=== PATIENT | female | born 1995 | race Caucasian/White ===

== ENCOUNTER → 2016-12-17 23:53 | Observation (INO) ==
--- NOTE | 2016-12-17 23:30 | OB/GYN Progress Note ---
Date of Encounter: 12/17/16 Time of Encounter: 23:26 - Assessment and Plan (1) 33 weeks gestation of Current Visit: Yes Status: Acute (2) gastroschisis during , antepartum Current Visit: Yes Status: Acute Qualifiers: Fetus number: single or unspecified fetus Qualified Code(s): O35.8XX0 - Maternal care for other (suspected) abnormality and damage, not applicable or unspecified (3) Decreased movement affecting management of mother, antepartum Current Visit: Yes Status: Acute NST reactive after vibroacoustic stim but minimal movement noted. Will continue to observe and plan for BPP in the am. Subjective - Subjective Interval history: 20 year-old at 33w6d presenting with c/o decreased movement. This is complicated by gastroschisis. She denies any other complaints today. Antepartum ROS: no loss of fluid, no vaginal bleeding, no movement normal , no contractions Objective - Vital Signs Vital Signs: Intake and Output 12/17/16 12/17/16 12/17/16 07:59 15:59 23:59 Other: Weight 73.7 kg Patient Weight 12/17/16 23:59 Weight 73.7 kg - Exam FHR: category 1 FHR comments: NST reactive after vibroacoustic stim but minimal movement noted Abdomen: Present: soft, gravid. Absent: tenderness Uterus: Absent: tenderness
== END | disposition home or self-care (01) ==
LOC: 1NENULAB
PROVIDERS: ADMIT Obstetrics & Gynecology; ATTEND Obstetrics & Gynecology